=== PATIENT | female | born 1995 | race Two or more races ===

== ENCOUNTER 2019-05-16 02:00 | Inpatient (IN) | payer OTHER ==
[2019-05-16] MEDS ORDERED: AMPICILLIN - 2 GM in SODIUM CHLORIDE 100 ML IVPB ONE (03:50)
[2019-05-16] MEDS ORDERED: BUTORPHANOL TARTRATE 1 MG/ML VIAL IVPB ONE (03:51)
[2019-05-16] MEDS ORDERED: PROMETHAZINE HCL 25 MG/1 ML VIAL IVPUSH ONE (03:51)
--- NOTE | 2019-05-16 03:59 | HP ---
Past Medical History - Admission Chief Complaint: Uterine contractions History of Present Illness: 23yo @ 39.6wks by 39wk sono done yesterday who presents with uterine contractions. No VB/LOF. +FM Initially presented at 3cm, after 90 minutes of ambulation, progressed to 4cm. Admitted. Preg c/b limited PNC. Recently arrived from [facility], one visit 2 days ago in the office. Labs unavailable. 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: Alzheimer's, CVA, Dementia, Migraine, Multiple Sclerosis, Peripheral Neuropathy, Parkinson's, Seizure, Syncope, TIA, Vertigo, Other Cardiovascular: No: AFIB, Aneurysm, Aortic Insufficiency, Aortic Stenosis, CAD, CHF, Deep Vein Thrombosis, HTN, Hyperlipdemia, NC, Mitral Insufficiency, Mitral Stenosis, Murmur, Pulmonary Hypertension, Other Pulmonary: No: Asthma, Bronchitis, Cancer, COPD, O2 Dependent, Pneumonia, Previously Intubated, Pulmonary Embolus, Pulmonary Fibrosis, Sleep Apnea, Other Gastrointestinal: No: Ascites, Cancer, Constipation, Crohn's Disease, Diverticulitis, Diverticulosis, Esophageal Varices, Gastritis, GERD, GI Bleed, Hemorrhoids, Hiatal Hernia, Inflamatory Bowel Disease, Irritable Bowel Disease, Pancreatitis, Peptic Ulcer Disease, Ulcerative Colitis, Other ...: 2 ...Para: 0 ...Term: 0 ...: 0 ...Spon : 1 ...Induced : 0 ...EDC by Dates: 05/18/19 ...EDC by Sono: 05/16/19 Heme/Onc: No: Anemia, B12 Deficiency, Bleeding Disorder, Cancer, Current Chemotherapy, Current Radiation Therapy, Hemochromatosis, Hypercoaguable State, Myeloproliferative Synd, Sickle Cell Disease, Sickle Cell Trait, Thrombocytopenia, Other Infectious Disease: No: AIDS, C-Diff, Herpes Zoster, HIV, MRSA, STD's, Tuberculosis, VREF, Other Psych: No: Addictions, Anxiety, Bipolar, Depression, Panic, Psychosis, Schizophrenia, Other Musculoskeletal: No: Bursitis, Chronic low back pain, Hemiparesis, Hemiplegia, Osteoarthritis, Paraplegia, Other Rheumatology: No: Fibromyalgia, Gout, Lupus, Rheumatoid Arthritis, Sarcoidosis, Vasculitis, Other ENT: No: Allergic Rhinitis, Sinusitis, Other Endocrine: No: Fredrick's Disease, [place]'s Disease, Diabetes Insipidus, Diabetes Mellitus, Hyperparathyroidism, Hyperthyroidism, Hypothyroidism, Osteopenia, SIADH, Other Dermatology: No: Basal Cell, Cellulitis, Eczema, Melanoma, Psoriasis, Squamous Cell, Other - Past Surgical History Past Surgical History: Yes: None Hx Myomectomy: No Hx Transabdominal Cerclage: No - Smoking History Have you smoked in the past 12 months: No - Alcohol/Substance Use Hx Alcohol Use: No History of Substance Use: reports: None - Social History Usual Living Arrangement: Yes: Alone ADL: Independent History of Recent Travel: Yes ([facility]; just arrived one month ago) Home Medications - Allergies Allergies/Adverse Reactions: Allergies Allergy/AdvReac Type Severity Reaction Status Date / Time No Known Allergies Allergy Verified 05/12/19 11:02 - Home Medications Home Medications: Ambulatory Orders NK [No Known Home Medication] 05/12/19 Physical Exam - Maternity Vital Signs: Vital Signs Temperature 98.6 F 05/16/19 02:41 Pulse Rate 68 05/16/19 02:41 Respiratory Rate 20 05/16/19 02:41 Blood Pressure 109/64 05/16/19 02:41 O2 Sat by Pulse Oximetry (%) Assessment/Plan 23yo @ 39.6wks here in labor Admit to L&D Only one visit yesterday, no labs available. All ordered Amp for GBS unknown Stadol/epidural prn Cat 1 tracing Anticipate EDILMA Bennett
[2019-05-16] MEDS ORDERED: ELECTROLYTE-148 SOLN 1,000 ML IV SCH (04:00)
[2019-05-16] MEDS ORDERED: PROMETHAZINE HCL 25 MG/1 ML VIAL ONE (04:07)
[2019-05-16] MEDS ORDERED: BUTORPHANOL TARTRATE 2 MG/ML VIAL ONE (04:07)
[2019-05-16] MEDS ORDERED: SODIUM CHLORIDE 100 ML IVPB ONE (04:08)
[2019-05-16] MEDS ORDERED: AMPICILLIN SODIUM 2 GM VIAL ONE (04:08)
[2019-05-16 04:50] LABS: BASO % 0.3 % (0-2.0); EOS % 0.3 % (0-4.5); HEMATOCRIT 33.9 % (32.4-45.2); LYMPH % 16.3 % (8-40); MCH 28.8 pg (25.7-33.7); MCHC 32.6 g/dl (32.0-36.0); MEAN CELL VOLUME 88.5 fl (80-96); MEAN PLT VOLUME 7.4 fl (7.5-11.1); MONO % 6.5 % (3.8-10.2); NEUT % 76.6 % (42.8-82.8); PLATELET COUNT 442 K/MM3 (134-434); RBC 3.83 M/mm3 (3.60-5.2); RDW 14.5 % (11.6-15.6); WHITE BLOOD COUNT 12.5 K/mm3 (4.0-10.0)
[2019-05-16 05:06] LABS: INR 0.97 (0.83-1.09); PROTHROMBIN TIME (PATIENT) 11.4 SEC (9.7-13.0)
[2019-05-16 05:08] LABS: BLOOD UREA NITROGEN 6.9 mg/dL (7-18); CREATININE 0.5 mg/dL (0.55-1.3); POTASSIUM 4.1 mmol/L (3.5-5.1)
[2019-05-16] MEDS ORDERED: OXYTOCIN 20 UNITS in 0.9% NS 20 UNIT/1,000 ML INFUS.BAG IV ONE (05:50)
[2019-05-16] MEDS ORDERED: LIDOCAINE HCL 1% PRESERVATIVE FREE - 30ML VIAL ONE (05:50)
[2019-05-16] MEDS ORDERED: BENZOCAINE 20% 57 GM BOTTLE TP PRN (06:41)
[2019-05-16] MEDS ORDERED: WITCH HAZEL 50% (TUCKS) 40 PAD/JAR PAD TP PRN (06:41)
[2019-05-16] MEDS ORDERED: METHYLERGONOVINE MALEATE 0.2 MG/1 ML AMP IM PRN (06:41)
[2019-05-16] MEDS ORDERED: oxyCODONE HCL 5 MG TABLET PO PRN (06:41)
[2019-05-16] MEDS ORDERED: BENZOCAINE 28 GM HEMORRHOIDAL OINTMENT TP PRN (06:41)
[2019-05-16] MEDS ORDERED: BISACODYL 10 MG SUPP.RECT RC PRN (06:41)
[2019-05-16] MEDS ORDERED: ACETAMINOPHEN 325 MG TABLET (FP) PO PRN (06:41)
[2019-05-16] MEDS ORDERED: IBUPROFEN 600 MG TABLET (FP) PO PRN (06:41)
[2019-05-16] MEDS ORDERED: OXYTOCIN 20 UNITS in 0.9% NS 20 UNIT/1,000 ML INFUS.BAG IV SCH (06:45)
--- NOTE | 2019-05-16 06:45 | PN ---
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 Loose nuchal x 1 delivered through. No meconium. Spontaneous delivery of anterior shoulder. placed on maternal abdomen. Cord clamped and cut. Infant handed off to pediatric staff. Weight pending. Apgars 9/9. Spontaneous delivery of intact placenta with 3VC. Fundus firm. Perineum inspected, 2nd degree laceration. 10cc 1% lidocaine injected, laceration repaired with 2-0 chromic. Good hemostasis. Mother and baby doing well. Leigh Bennett MD
[2019-05-16 07:41] VITALS: BMI 24.0
[2019-05-16] MEDS ORDERED: AMPICILLIN - 1 GM in SODIUM CHLORIDE 100 ML IVPB SCH (07:55)
[2019-05-16] MEDS: PRENATAL VITAMINS W/ FOLIC ACID TABLET (FP) PO SCH (09:41)
[2019-05-16] MEDS: FERROUS SO4 325 MG TABLET (FP) PO SCH ×3 (09:41→18:01)
--- NOTE | 2019-05-17 09:05 | PN ---
Post Progress Note Post Day: 1 Type of Delivery: Vital Signs: Vital Signs Temperature 98.4 F 05/17/19 06:00 Pulse Rate 71 05/17/19 06:00 Respiratory Rate 18 05/17/19 06:00 Blood Pressure 85/63 L 05/17/19 06:00 O2 Sat by Pulse Oximetry (%) 99 05/16/19 06:45 Uterus: Yes: Fundus below umbilicus Abdomen/GI: Yes: Abdomen soft, Tolerating PO Lochia: Yes: Rubra Lochia, amount: Small Extremities: Yes: Calves non-tender Perineum: Yes: Laceration Activity: Ambulating - Labs Labs: CBC WBC 12.5 K/mm3 (4.0-10.0) H 05/16/19 04:40 RBC 3.83 M/mm3 (3.60-5.2) 05/16/19 04:40 Hgb 11.0 GM/dL (10.7-15.3) 05/16/19 04:40 Hct 33.9 % (32.4-45.2) 05/16/19 04:40 MCV 88.5 fl (80-96) 05/16/19 04:40 MCH 28.8 pg (25.7-33.7) 05/16/19 04:40 MCHC 32.6 g/dl (32.0-36.0) 05/16/19 04:40 RDW 14.5 % (11.6-15.6) 05/16/19 04:40 Plt Count 442 K/MM3 (134-434) H 05/16/19 04:40 MPV 7.4 fl (7.5-11.1) L 05/16/19 04:40 Absolute Neuts (auto) 9.6 K/mm3 (1.5-8.0) H 05/16/19 04:40 Neutrophils % 76.6 % (42.8-82.8) 05/16/19 04:40 Lymphocytes % 16.3 % (8-40) 05/16/19 04:40 Monocytes % 6.5 % (3.8-10.2) 05/16/19 04:40 Eosinophils % 0.3 % (0-4.5) 05/16/19 04:40 Basophils % 0.3 % (0-2.0) 05/16/19 04:40 Nucleated RBC % 0 % (0-0) 05/16/19 04:40 Assessment/Plan 23yo s/p , PPD#1 Routine PP care Labs pending CXR today given PPD/QFT unknown OOB, ambulate D/C to home PPD#2 Leigh Bennett
[2019-05-17 09:20] LABS: BASO % 0.3 % (0-2.0); EOS % 0.5 % (0-4.5); HEMATOCRIT 28.7 % (32.4-45.2); HEMOGLOBIN 9.7 GM/dL (10.7-15.3); LYMPH % 14.1 % (8-40); MCH 29.8 pg (25.7-33.7); MCHC 33.7 g/dl (32.0-36.0); MEAN CELL VOLUME 88.3 fl (80-96); MEAN PLT VOLUME 7.2 fl (7.5-11.1); MONO % 4.2 % (3.8-10.2); NEUT % 80.9 % (42.8-82.8); PLATELET COUNT 455 K/MM3 (134-434); RBC 3.25 M/mm3 (3.60-5.2); RDW 14.4 % (11.6-15.6); WHITE BLOOD COUNT 11.8 K/mm3 (4.0-10.0)
[2019-05-17] MEDS: PRENATAL VITAMINS W/ FOLIC ACID TABLET (FP) PO SCH (09:51)
[2019-05-17] MEDS: FERROUS SO4 325 MG TABLET (FP) PO SCH ×3 (09:51→18:02)
[2019-05-17 21:01] VITALS: TEMP 98.6
[2019-05-17] MEDS ORDERED: SENNOSIDES/DOCUSATE COMBO (SENNA PLUS) TABLET (UD) PO PRN (22:00)
--- NOTE | 2019-05-18 08:55 | DS ---
Physical Examination Vital Signs: Vital Signs Temperature 98.6 F 05/17/19 21:01 Pulse Rate 76 05/17/19 21:01 Respiratory Rate 20 05/17/19 21:01 Blood Pressure 91/50 L 05/17/19 21:01 O2 Sat by Pulse Oximetry (%) 99 05/16/19 06:45 Constitutional: Yes: Well Nourished, No Distress, Calm Eyes: Yes: WNL, Conjunctiva Clear, EOM Intact HENT: Yes: WNL, Atraumatic, Normocephalic Neck: Yes: WNL, Supple, Trachea Midline Cardiovascular: Yes: WNL, Regular Rate and Rhythm Respiratory: Yes: WNL, Regular, CTA Bilaterally Gastrointestinal: Yes: WNL, Normal Bowel Sounds Musculoskeletal: Yes: WNL Extremities: Yes: WNL Edema: No Integumentary: Yes: WNL Neurological: Yes: WNL, Alert, Oriented ...Motor Strength: WNL Psychiatric: Yes: WNL Labs: CBC, BMP 05/17/19 08:39 05/16/19 04:40 Discharge Summary Reason For Visit: LABOR ADMIT Procedures: Principal: Hospital Course: Patient presented in labor She had an uncomplicated She met all milestones She was discharged home on PPD#2 in stable condition. Leigh Bennett Condition: Stable - Instructions Diet, Activity, Other Instructions: Regular Diet Follow up in 4-6 weeks for a visit with Dra. Bennett Referrals: Nadira Bennett MD [Staff Physician] - Disposition: HOME - Home Medications Comprehensive Discharge Medication List: Ambulatory Orders Ibuprofen 600 mg PO Q6H PRN #30 tablet 05/17/19
[2019-05-18] MEDS: FERROUS SO4 325 MG TABLET (FP) PO SCH ×2 (09:00→12:07)
[2019-05-18 09:13] VITALS: BP 86/53; PULSE 73
[2019-05-18] MEDS: PRENATAL VITAMINS W/ FOLIC ACID TABLET (FP) PO SCH (09:17)
[2019-05-18 14:13] LABS: RUBELLA IgG ANTIBODY 8.73 index (Immune >0.99)
== END 2019-05-18 15:15 | disposition home or self-care (01) | DRG 560 ==
LOC: JDEL 02:00 → JLDR 03:40 → J3W 08:56
PROVIDERS: ADMIT Obstetrics & Gynecology; ATTEND Obstetrics & Gynecology
PROC: 0KQM0ZZ Repair Perineum Muscle, Open Approach (ICD-10-PCS; principal; 2019-05-16)
PROC: 10E0XZZ Delivery of Products of Conception, External Approach (ICD-10-PCS; 2019-05-16)
PROC: 0W8NXZZ Division of Female Perineum, External Approach (ICD-10-PCS; 2019-05-16)
DX: O70.1 Second degree perineal laceration during delivery (principal); Z3A.39 39 weeks gestation of pregnancy; Z37.0 Single live birth
CPT/HCPCS: 36415; 59409; 71046-TC-FY; 80048; 85025; 85610; 86593; 86762; 86850; 86900; 86901; 87340; 87389